=== PATIENT | female | born 1985 | race Caucasian/White ===

== ENCOUNTER 2016-09-24 21:15 | Emergency (ER) | payer OTHER ==
[~2016-09-24] VITALS: Ht 172.7 cm; Wt 70.3 kg
[~2016-09-24 21:15] MED LIST: DEPAKOTE ER 25250 MG PO; DEPAKOTE500 MG PO; DIVALPROEX SOD500 M2 PO; DIVALPROEX SOD500 MG PO; PROPRANOLOL HCL10 MG PO; TESSALON PERLE100 MG PO; TORADOL10 MG PO; TRAMADOL50 MG PO; VALIUM2 MG PO
[2016-09-24 21:22] VITALS: BP 112/60
--- NOTE | 2016-09-24 22:00 | ED AMS/SEIZURE/WEAK/DIZZY ---
History of Present Illness General Chief Complaint: Seizure Stated Complaint: BIBA FOR SEIZURE Source: patient, old records, EMS, friend Exam Limitations: no limitations Vital Signs & Intake/Output Vital Signs & Intake/Output Vital Signs Date Time Temp Pulse Resp B/P Pulse O2 O2 Flow FiO2 Ox Delivery Rate 09/24 2330 Room Air 09/24 2121 98.3 83 20 112/60 94 Room Air ED Intake and Output 09/25 0000 09/24 1200 Intake Total 0 Output Total Balance 0 Intake, Oral 0 Patient 155 lb Weight Allergies Coded Allergies: venom-honey bee (BEE VENOM (HONEY BEE)) (Severe, ANAPHYLAXIS 01/08/16) Reconcile Medications Divalproex Sodium 500 MG TABLET. 1 TAB PO BID seizure Triage Nurses Notes Reviewed? yes Onset: Just prior to arrival Duration: minute(s):, better, gone now Timing: recent history Injury Environment: home Severity: severe Modifying Factors: Improves With: rest. LMP (ages 10-50): unknown : No Patient currently breastfeeds: No HPI: Priorr to admission boyfriend noted patient had generalized seizure lasting minutes. She is unsure whether she's been compliant with her Depakote. She denies fever chills nausea vomiting diarrhea abdominal pain chest pain shortness of breath dysuria headache rash bleeding. Past History Travel History Traveled to [place] past 21 day No Medical History Any Pertinent Medical History? see below for history Neurological: seizure EENT: NONE Cardiovascular: NONE Respiratory: NONE Gastrointestinal: NONE Hepatic: NONE Renal: NONE Musculoskeletal: NONE Psychiatric: bipolar disease, depression, PANICK ATTACKS Endocrine: NONE Blood Disorders: NONE Cancer(s): NONE BENCH LATHE OPERATOR/Reproductive: NONE Tetanus Vaccine: 01/05/14 Surgical History Surgical History: N Psychosocial History Who do you live with Significant Other What is your primary language Romanian Family History Hx Contributory? No Review of Systems Review of Systems Constitutional: Reports: no symptoms. EENTM: Reports: no symptoms. Respiratory: Reports: no symptoms. Cardiovascular: Reports: no symptoms. GI: Reports: no symptoms. Genitourinary: Reports: no symptoms. Musculoskeletal: Reports: no symptoms. Skin: Reports: no symptoms. Neurological/Psychological: Reports: see HPI, tonic-clonic seizures. Hematologic/Endocrine: Reports: no symptoms. Immunologic/Allergic: Reports: no symptoms. All Other Systems: Reviewed and Negative Physical Exam Physical Exam General Appearance: well developed/nourished, alert, awake, anxious, mild distress Head: atraumatic, normal appearance Eyes: Bilateral: normal appearance, PERRL, EOMI. Ears, Nose, Throat: normal pharynx, left lateral tongue abrasion not actively bleeding Neck: normal inspection, supple, full range of motion, no midline tenderness Respiratory: normal breath sounds, chest non-tender, no respiratory distress, quiet respiration, lungs clear Cardiovascular: regular rate/rhythm, normal peripheral pulses, norml femoral pulses equa Peripheral Pulses: 4+ carotid (R), 4+ carotid (L) Gastrointestinal: normal bowel sounds, soft, non-tender, no organomegaly Back: normal inspection, normal range of motion Extremities: normal range of motion, no ligament instability Neurologic/Psych: no motor/sensory deficits, awake, alert, oriented x 3, normal gait, normal mood/affect, 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 Skin: intact, normal color, warm/dry Lymphatic: no anterior cervical francisco Core Measures ACS in differential dx? No CVA/TIA Diagnosis: No Severe Sepsis Present: No Septic Shock Present: No Progress Differential Diagnosis: seizure disorder Plan of Care: Orders Procedure Date/time Status PROLACTIN 09/24 2154 Complete MAGNESIUM 09/24 2154 Complete DEPAKOTE LEVEL 09/24 2154 Complete COMPREHENSIVE METABOLIC PANEL 09/24 2154 Complete CBC WITHOUT DIFFERENTIAL 09/24 2154 Complete Laboratory Tests 09/24/165: Anion Gap 11, Estimated GFR > 60, BUN/Creatinine Ratio 14.3, Glucose 92, Calcium 9.0, Magnesium 2.0, Total Bilirubin 0.3, AST 16, ALT 20, Alkaline Phosphatase 59 , Total Protein 7.1, Albumin 4.1, Globulin 3.0, Albumin/Globulin Ratio 1.4, Prolactin 41.8 H, CBC w Diff NO MAN DIFF REQ, RBC 4.43, MCV 86.2, MCH 29.4, RDW 12.6, MPV 9.5, Gran % 57.5, Lymphocytes % 32.6, Monocytes % 6.6, Eosinophils % 2.6, Basophils % 0.7, Absolute Granulocytes 4.5, Absolute Lymphocytes 2.6, Absolute Monocytes 0.5, Absolute Eosinophils 0.2, Absolute Basophils 0.1, PUBS MCHC 34.1, Valproic Acid < 10.0 L Initial ED EKG: none Departure Departure Time of Disposition: 2302 Disposition: HOME OR SELF CARE Condition: Stable Clinical Impression Primary Impression: Seizure disorder Referrals: HIWOT BRYANT (PCP/Family) Departure Forms: Customer Survey General Discharge Information
[2016-09-24 22:12] LABS: ABSOLUTE BASOPHIL COUNT 0.1 /CUMM (0.0-0.2); ABSOLUTE EOSINOPHIL COUNT 0.2 /CUMM (0.0-0.7); ABSOLUTE GRANULOCYTE CT 4.5 /CUMM (1.4-6.5); ABSOLUTE LYMPH COUNT 2.6 /CUMM (1.2-3.4); ABSOLUTE MONOCYTE COUNT 0.5 /CUMM (0.10-0.60); BASOPHIL % 0.7 % (0.0-2.0); EOSINOPHIL % 2.6 % (0-5); GRANULOCYTE % 57.5 % (42.2-75.2); HEMATOCRIT 38.2 % (37-47); MEAN CORPUSCULAR HGB 29.4 PG (27.0-31.0); MEAN CORPUSCULAR HGB CONC 34.1 G/DL (33.0-37.0); MEAN CORPUSCULAR VOLUME 86.2 FL (81.0-99.0); MEAN PLATELET VOLUME 9.5 FL (7.4-10.4); PLATELET COUNT 219 /CUMM (130-400); RBC DISTRIBUTION WIDTH 12.6 % (11.5-14.5); RED BLOOD CELL CT 4.43 /CUMM (4.20-5.40); WHITE BLOOD CELL COUNT 7.9 /CUMM (4.8-10.8)
== END 2016-09-24 23:32 ==
LOC: ERH 21:15
PROVIDERS: Emergency Medicine
DX: G40.909 Epilepsy, unspecified, not intractable, without status epilepticus (principal)